=== PATIENT | female | born 1970 | race Caucasian/White ===

== ENCOUNTER 2021-01-15 13:26 | Inpatient (IN) | payer OTHER ==
[~2021-01-15] VITALS: Ht 177.8 cm; Wt 82.8 kg
[~2021-01-15 13:26] MED LIST: CLON2TAB PO; ESCITALOPRAM OX10 MG PO; FAMO-63 PO; HYDR-2761 PO; ZOLP5TAB PO
[2021-01-15] MEDS ORDERED: IV NORMAL SALINE 1000ML BAG 1,000 ML IV ONE ×2 (14:00→17:30)
[2021-01-15] MEDS ORDERED: ONDANSETRON PF 4 MG/2 ML VIAL. IVP ONE (14:00)
[2021-01-15] MEDS: MORPHINE SULFATE 4 MG/ML INJ. IV/SQ PRN ×3 (14:26→17:00)
[2021-01-15 14:28] LABS: BASO % 1 % (0-3); EOS # 0.1 x10^3/uL (0.0-0.7); EOS % 2 % (0-3); HEMATOCRIT 41.7 % (36.0-47.0); HEMOGLOBIN 13.9 g/dL (12.0-15.5); LYMPH # 1.6 x10^3/uL (1.0-4.8); LYMPH % 28 % (24-48); MEAN CORPUSCULAR HEMOGLOBIN 29 pg (25-35); MEAN CORPUSCULAR HGB CONC 33 g/dL (31-37); MEAN CORPUSCULAR VOLUME 86 fL (79-100); MONO # 0.4 x10^3/uL (0.0-1.1); MONO % 7 % (0-9); NEUT # 3.5 x10^3/uL (1.8-7.7); NEUT % 63 % (31-73); PLATELET COUNT 255 x10^3/uL (140-400); RED BLOOD COUNT 4.87 x10^6/uL (3.50-5.40); RED CELL DISTRIBUTION WIDTH 14.5 % (11.5-14.5); WHITE BLOOD COUNT 5.6 x10^3/uL (4.0-11.0)
[2021-01-15 14:29] LABS: BILIRUBIN,URINE NEGATIVE (NEG); CLARITY,URINE CLEAR; COLOR,URINE YELLOW; NITRITE,URINE NEGATIVE (NEG); PH,URINE 5.5 (<5.0-8.0); PROTEIN,URINE NEGATIVE (NEG-TRACE); UROBILINOGEN,URINE 0.2 mg/dL (0.2 mg/dL)
[2021-01-15 14:41] LABS: BARBITURATES NEG (NEG); BENZODIAZEPINES POS (NEG); CANNABINOIDS NEG (NEG); COCAINE NEG (NEG); METHADONE NEG (NEG); OPIATES NEG (NEG); PHENCYCLIDINE NEG (NEG)
[2021-01-15 14:42] LABS: CALCIUM 8.9 mg/dL (8.5-10.1); CREATININE 0.9 mg/dL (0.6-1.0); GFR 65.8; POTASSIUM 3.7 mmol/L (3.5-5.1)
[2021-01-15 14:46] LABS: AMPHETAMINE/METHAMPHETAMINE NEG (NEG)
[2021-01-15 14:47] LABS: ALBUMIN 3.8 g/dL (3.4-5.0); MAGNESIUM 2.1 mg/dL (1.8-2.4); TOTAL BILIRUBIN 0.5 mg/dL (0.2-1.0); TOTAL PROTEIN 7.5 g/dL (6.4-8.2)
[2021-01-15 14:49] LABS: BACTERIA,URINE 0 /HPF (0-FEW); RBC,URINE OCC /HPF (0-2); WBC,URINE OCC /HPF (0-4)
[2021-01-15] MEDS ORDERED: IOHEXOL 300 MG/ML 100ML VIAL. IV ONE (15:00)
[2021-01-15] MEDS ORDERED: CONTRAST GIVEN. MC PRN (15:00)
--- NOTE | 2021-01-15 15:34 | RAD ---
INDICATION: Reason: abd pain / Spl. Instructions: [id number] [phone] / History: COMPARISON: January 04, 2021 TECHNIQUE: Axial CT images were obtained through the abdomen and pelvis with intravenous contrast. One or more of the following individualized dose reduction techniques were utilized for this examinat ion: 1. Automated exposure control; 2. Adjustment of the mA and/or kV according to patient size; 3 . Use of iterative reconstruction technique. FINDINGS: Vascular: Scattered calcific atherosclerosis. Hepatobiliary: Postcholecystectomy with prominence of the intrahepatic bile ducts which is a common f inding postoperatively. Low-density lesion left lobe the liver again seen which is most likely cystic in nature. Pancreas: No peripancreatic edema. Spleen: Spleen unremarkable. Renal/Bladder: Prominence of the bilateral renal pelvis again seen. Urinary bladder has minimal urine within it at time of exam. Gastrointestinal: Postoperative changes to the colon with suture line seen in the sigmoid region as w ell as right side of the colon. Colonic diverticulosis. Colon is largely decompressed with some regio ns with prominence the wall. This includes at the right side of the colon with some subtle haziness t o the fat again seen. No dilated loops of bowel to suggest obstruction. Repeat demonstration of small anterior abdominal wall hernia which is similar to prior. Degenerative changes the spine with multilevel central canal and neural foraminal stenosis. IMPRESSION: * There is repeat demonstration of some prominence of the colon wall with small amount haziness the fat adjacent to a portion of the right side of the colon. A portion of the prominence the wall is li xavier secondary to lack of distention but given the mild haziness the fat this could be secondary to a small amount of residual inflammation from causes such as colitis if the patient has appropriate sym ptoms. The haziness the fat appears slightly decreased from prior. * Postcholecystectomy with prominence of bile ducts which is a common finding postoperatively. Electronically signed by: Matteo Fung MD (01/15/2021 3:31 PM) [id number]
--- NOTE | 2021-01-15 15:42 | PHYS DOC ---
Past Medical History Past Medical History: Depression Additional Past Medical Histor: HERNIA, LARS (LOW ANTERIOR RESECTION SYNDROME) Past Surgical History: Appendectomy, Cholecystectomy, Hysterectomy Additional Past Surgical Histo: MULTIPLE BOWEL RESECTION REPAIRS Smoking Status: Unknown if ever smoked Alcohol Use: None General Adult EDM: Chief Complaint: ABDOMINAL PAIN HPI: HPI: Patient is a 50 year old female with a history of depression, multiple abdominal surgeries including colon resection, abdominal hernia, colitis, cholecystectomy, appendectomy, who presents the ED today complaining of chronic abdominal pain but has gotten worse this morning. Patient describes the pain as sharp and constant, rates the pain at 7 out of 10, states the pain is on the right lower quadrant. Reports chronic diarrhea. Denies any nausea or vomiting. She states she ran out of her oxycodone a couple days ago. She states she is supposed to have ventral hernia repair surgery in [address] Lacey and can not wait until then. She states she was seen at [facility] on January 04, 2021 but they did not do anything for her though she reports they did lab work and CT as well as give her pain medicine. Review of Systems: Review of Systems: Constitutional: Denies fever or chills. [] Eyes: Denies change in visual acuity. [] HENT: Denies nasal congestion or sore throat. [] Respiratory: Denies cough or shortness of breath. [] Cardiovascular: Denies chest pain or edema. [] GI: Reports right lower quadrant abdominal pain, chronic diarrhea, denies nausea, vomiting, bloody stools : Denies dysuria. [] Musculoskeletal: Denies back pain or joint pain. [] Integument: Denies rash. [] Neurologic: Denies headache, focal weakness or sensory changes. [] Psychiatric: Denies depression or anxiety. [] Heart Score: C/O Chest Pain: N/A Risk Factors: Risk Factors: DM, Current or recent (<one month) smoker, HTN, HLP, family histo ry of CAD, obesity. Risk Scores: Score 0 - 3: 2.5% MACE over next 6 weeks - Discharge Home Score 4 - 6: 20.3% MACE over next 6 weeks - Admit for Clinical Observation Score 7 - 10: 72.7% MACE over next 6 weeks - Early Invasive Strategies Current Medications: Current Medications Medications (Trade) Dose Ordered Sig/Beny Start Time Stop Time Status Last Admin Dose Admin Info (CONTRAST GIVEN -- Rx MONITORING) 1 each PRN DAILY PRN 01/15/21 15:00 01/17/21 14:59 Iohexol (Omnipaque 300 Mg/ml) 75 ml 1X ONCE 01/15/21 15:00 01/15/21 15:01 DC 01/15/21 14:59 75 ML Morphine Sulfate (Morphine Sulfate) 4 mg PRN Q15MIN PRN 01/15/21 14:00 01/16/21 13:59 01/15/21 14:31 4 MG Ondansetron HCl (Zofran) 4 mg 1X ONCE 01/15/21 14:00 01/15/21 14:01 DC 01/15/21 14:31 4 MG Sodium Chloride 1,000 ml @ 1,000 mls/hr 1X ONCE 01/15/21 14:00 01/15/21 14:59 DC 01/15/21 14:25 1,000 MLS/HR Allergies: Allergies: Allergies Coded Allergies Type Severity Reaction Last Updated Verified cephalexin Allergy Intermediate 01/15/21 Yes Physical Exam: PE: Constitutional: Well developed, well nourished, no acute distress, non-toxic appearance. [] HENT: Normocephalic, atraumatic, bilateral external ears normal, oropharynx moist, no oral exudates, nose normal. [] Eyes: PERRLA, EOMI, conjunctiva normal, no discharge. [] Neck: Normal range of motion, no tenderness, supple, no stridor. [] Cardiovascular:Heart rate regular rhythm, no murmur [] Lungs & Thorax: Bilateral breath sounds clear to auscultation [] Abdomen: Bowel sounds normal, soft, mild tenderness on palpation of the right lower quadrant, no right upper quadrant tenderness, no left upper quadrant or left lower quadrant tenderness no masses, no pulsatile masses. [] Skin: Warm, dry, no erythema, no rash. [] Back: No tenderness, no CVA tenderness. [] Extremities: No tenderness, no cyanosis, no clubbing, ROM intact, no edema. [] Neurologic: Alert and oriented X 3, normal motor function, normal sensory function, no focal deficits noted. [] Psychologic: Flat affect. Current Patient Data: Labs: Laboratory Tests Test 01/15/21 13:58 01/15/21 14:04 01/15/21 14:07 White Blood Count 5.6 x10^3/uL (4.0-11.0) Red Blood Count 4.87 x10^6/uL (3.50-5.40) Hemoglobin 13.9 g/dL (12.0-15.5) Hematocrit 41.7 % (36.0-47.0) Mean Corpuscular Volume 86 fL (79-100) Mean Corpuscular Hemoglobin 29 pg (25-35) Mean Corpuscular Hemoglobin Concent 33 g/dL (31-37) Red Cell Distribution Width 14.5 % (11.5-14.5) Platelet Count 255 x10^3/uL (140-400) Neutrophils (%) (Auto) 63 % (31-73) Lymphocytes (%) (Auto) 28 % (24-48) Monocytes (%) (Auto) 7 % (0-9) Eosinophils (%) (Auto) 2 % (0-3) Basophils (%) (Auto) 1 % (0-3) Neutrophils # (Auto) 3.5 x10^3/uL (1.8-7.7) Lymphocytes # (Auto) 1.6 x10^3/uL (1.0-4.8) Monocytes # (Auto) 0.4 x10^3/uL (0.0-1.1) Eosinophils # (Auto) 0.1 x10^3/uL (0.0-0.7) Basophils # (Auto) 0.0 x10^3/uL (0.0-0.2) Sodium Level 139 mmol/L (136-145) Potassium Level 3.7 mmol/L (3.5-5.1) Chloride Level 102 mmol/L (98-107) Carbon Dioxide Level 29 mmol/L (21-32) Anion Gap 8 (6-14) Blood Urea Nitrogen 20 mg/dL (7-20) Creatinine 0.9 mg/dL (0.6-1.0) Estimated GFR (Cockcroft-Gault) 65.8 BUN/Creatinine Ratio 22 (6-20) H Glucose Level 94 mg/dL (70-99) Lactic Acid Level 1.4 mmol/L (0.4-2.0) Calcium Level 8.9 mg/dL (8.5-10.1) Magnesium Level 2.1 mg/dL (1.8-2.4) Total Bilirubin 0.5 mg/dL (0.2-1.0) Aspartate Amino Transferase (AST) 17 U/L (15-37) Alanine Aminotransferase (ALT) 23 U/L (14-59) Alkaline Phosphatase 94 U/L (46-116) Total Protein 7.5 g/dL (6.4-8.2) Albumin 3.8 g/dL (3.4-5.0) Albumin/Globulin Ratio 1.0 (1.0-1.7) Lipase 91 U/L (73-393) Urine Collection Type Unknown Urine Color Yellow Urine Clarity Clear Urine pH 5.5 (<5.0-8.0) Urine Specific Viola 1.025 (1.000-1.030) Urine Protein Negative mg/dL (NEG-TRACE) Urine Glucose (UA) Negative mg/dL (NEG) Urine Ketones (Stick) Trace mg/dL (NEG) Urine Blood Trace (NEG) Urine Nitrite Negative (NEG) Urine Bilirubin Negative (NEG) Urine Urobilinogen Dipstick 0.2 mg/dL (0.2 mg/dL) Urine Leukocyte Esterase Negative (NEG) Urine RBC Occ /HPF (0-2) Urine WBC Occ /HPF (0-4) Urine Squamous Epithelial Cells Few /LPF Urine Bacteria 0 /HPF (0-FEW) Urine Mucus Mod /LPF Urine Opiates Screen Neg (NEG) Urine Methadone Screen Neg (NEG) Urine Barbiturates Neg (NEG) Urine Phencyclidine Screen Neg (NEG) Urine Amphetamine/Methamphetamine Neg (NEG) Urine Benzodiazepines Screen Pos (NEG) Urine Cocaine Screen Neg (NEG) Urine Cannabinoids Screen Neg (NEG) Urine Ethyl Alcohol Neg (NEG) POC Urine HCG, Qualitative Hcg negative (Negative) Laboratory Tests 01/15/21 13:58 Laboratory Tests 01/15/21 13:58 Vital Signs: Vital Signs Date Time Temp Pulse Resp B/P (MAP) Pulse Ox O2 Delivery O2 Flow Rate FiO2 01/15/21 15:04 80 16 116/61 (79) 97 Room Air EKG: EKG: [] Radiology/Procedures: Radiology/Procedures: []PROCEDURE: CT ABD PELV W/ IV CONTRST ONLY INDICATION: Reason: abd pain / Spl. Instructions: [id number] [phone] / History: COMPARISON: January 04, 2021 TECHNIQUE: Axial CT images were obtained through the abdomen and pelvis with intravenous contrast. One or more of the following individualized dose reduction techniques were utilized for this examination: 1. Automated exposure control; 2. Adjustment of the mA and/or kV according to patient size; 3. Use of iterative reconstruction technique. FINDINGS: Vascular: Scattered calcific atherosclerosis. Hepatobiliary: Postcholecystectomy with prominence of the intrahepatic bile ducts which is a common finding postoperatively. Low-density lesion left lobe the liver again seen which is most likely cystic in nature. Pancreas: No peripancreatic edema. Spleen: Spleen unremarkable. Renal/Bladder: Prominence of the bilateral renal pelvis again seen. Urinary bladder has minimal urine within it at time of exam. Gastrointestinal: Postoperative changes to the colon with suture line seen in the sigmoid region as well as right side of the colon. Colonic diverticulosis. Colon is largely decompressed with some regions with prominence the wall. This includes at the right side of the colon with some subtle haziness to the fat again seen. No dilated loops of bowel to suggest obstruction. Repeat demonstration of small anterior abdominal wall hernia which is similar to prior. Degenerative changes the spine with multilevel central canal and neural foraminal stenosis. IMPRESSION: * There is repeat demonstration of some prominence of the colon wall with small amount haziness the fat adjacent to a portion of the right side of the colon. A portion of the prominence the wall is likely secondary to lack of distention but given the mild haziness the fat this could be secondary to a small amount of residual inflammation from causes such as colitis if the patient has appropriate symptoms. The haziness the fat appears slightly decreased from prior. * Postcholecystectomy with prominence of bile ducts which is a common finding postoperatively. Electronically signed by: Jose Antonio Lynch MD (01/15/2021 3:31 PM) [id number] DICTATED and SIGNED BY: JOSE ANTONIO LYNCH MD DATE: 01/15/21 [id number] 0 Course & Med Decision Making: Course & Med Decision Making Pertinent Labs and Imaging studies reviewed. (See chart for details) This is a 50-year-old female patient with history of chronic abdominal pain with multiple surgeries including appendectomy, cholecystectomy, colon resection presenting today complaining of right lower quadrant abdominal pain that is chronic but got worse this morning. Patient was seen at [facility] in November as well as December for similar complaints. CBC, CMP, lipase with no acute findings. UA is negative CT of the abdomen and pelvis* There is repeat demonstration of some prominence of the colon wall with small amount haziness the fat adjacent to a portion of the right side of the colon. A portion of the prominence the wall is likely secondary to lack of distention but given the mild haziness the fat this could be secondary to a small amount of residual inflammation from causes such as colitis if the patient has appropriate symptoms. The haziness the fat appears slightly decreased from prior. Postcholecystectomy with prominence of bile ducts which is a common finding postoperatively. Results were communicated to patient and , patient stated she has hernia surgery scheduled in [address] Lacey but cannot wait until then. She states she wants this done ETHAN. Informed that there is no indication for having hernia repair emergently. Informed her she can follow-up as an outpatient with Dr. Lacey and have this set up. She states Dr. Lacey is booked up and now wants Dr. Hardin to do the procedure. She states she needs to be admitted to have this done as an inpatient. Spoke with Dr. Ferrera who accepted patient for admission, routine consult placed for general surgery. Hector Disclaimer: Hector Disclaimer: This electronic medical record was generated, in whole or in part, using a voice recognition dictation system. Departure Departure Impression: Primary Impression: Intractable abdominal pain Disposition: ADMITTED INPATIENT Condition: STABLE Referrals: BEATRIZ FAJARDO (PCP) ALLAN SHIN SENIOR QA TESTER Jan 15, 2021 15:41
[2021-01-15] MEDS ORDERED: KETOROLAC 30 MG/ML VIAL. IVP ONE (17:00)
[2021-01-15] MEDS ORDERED: ACETAMINOPHEN 500 MG TABLET PO ONE (17:00)
[2021-01-15] MEDS ORDERED: METOCLOPRAMIDE HCL 10 MG/2 ML VIAL. IVP ONE (17:15)
[2021-01-15] MEDS ORDERED: ONDANSETRON PF 4 MG/2 ML VIAL. IVP PRN (17:30)
[2021-01-15 19:00] VITALS: BP 117/60
[2021-01-15] MEDS: fentaNYL PF VIAL 100 MCG/2 ML VIAL IVP PRN (21:03)
[2021-01-15] MEDS ORDERED: CHOL400C PO (21:31)
[2021-01-15] MEDS ORDERED: CITALOPRAM 20 MG TABLET. PO SCH (22:00)
[2021-01-15] MEDS: clonazePAM 0.5 MG TABLET PO PRN (22:05)
[2021-01-15] MEDS: ZOLPIDEM 5 MG TABLET. PO PRN (22:05)
[2021-01-15] MEDS ORDERED: LEXAPRO10 MG PO (22:11)
[2021-01-15] MEDS: KETOROLAC 30 MG/ML VIAL. IVP PRN (22:36)
[2021-01-15 23:00] VITALS: BP 119/70
[2021-01-16 03:00] VITALS: BP 87/60
[2021-01-16 06:32] LABS: BASO % 1 % (0-3); EOS # 0.2 x10^3/uL (0.0-0.7); EOS % 4 % (0-3); HEMATOCRIT 37.1 % (36.0-47.0); LYMPH # 2.2 x10^3/uL (1.0-4.8); LYMPH % 48 % (24-48); MEAN CORPUSCULAR HEMOGLOBIN 28 pg (25-35); MEAN CORPUSCULAR HGB CONC 32 g/dL (31-37); MEAN CORPUSCULAR VOLUME 87 fL (79-100); MONO # 0.4 x10^3/uL (0.0-1.1); MONO % 8 % (0-9); NEUT # 1.8 x10^3/uL (1.8-7.7); NEUT % 39 % (31-73); PLATELET COUNT 236 x10^3/uL (140-400); RED BLOOD COUNT 4.27 x10^6/uL (3.50-5.40); RED CELL DISTRIBUTION WIDTH 14.8 % (11.5-14.5); WHITE BLOOD COUNT 4.5 x10^3/uL (4.0-11.0)
[2021-01-16 06:41] LABS: ALBUMIN 3.1 g/dL (3.4-5.0); ALBUMIN/GLOBULIN RATIO 1.1 (1.0-1.7); CALCIUM 8.1 mg/dL (8.5-10.1); CREATININE 0.7 mg/dL (0.6-1.0); GFR 87.9; POTASSIUM 3.6 mmol/L (3.5-5.1); TOTAL BILIRUBIN 0.6 mg/dL (0.2-1.0)
[2021-01-16 07:00] VITALS: BP 87/46
[2021-01-16] MEDS: METOCLOPRAMIDE HCL 10 MG/2 ML VIAL. IVP PRN (08:37)
[2021-01-16] MEDS: KETOROLAC 30 MG/ML VIAL. IVP PRN (08:38)
[2021-01-16] MEDS: fentaNYL PF VIAL 100 MCG/2 ML VIAL IVP PRN (08:58)
[2021-01-16] MEDS: CHOLECALCIFEROL (VITAMIN D3) 1,000 UNIT TABLET PO SCH (09:00)
[2021-01-16 11:00] VITALS: BP 99/46
--- NOTE | 2021-01-16 11:39 | PDOC2 ---
SHANAE BYNUM BEVERAGE STEWARD 01/16/21 1139: CONSULT Date of Consult Date of Consult DATE: 01/16/21 TIME: 11:30 Reason for Consult Reason for Consult: abd pain Referring Physician Referring Physician: ER Identification/Chief Complaint Chief Complaint abdominal pain Source Source: Chart review, Patient History of Present Illness Reason for Visit: Ongoing issues with right sided abdominal and pelvis pain. It has gotten worse and become more unbearable. Seems worse with stools. She has been seen by Dr Eason, tentatively planning colonoscopy then elective hernia repair. She reports can not wait until Feb for surgery, she can not discharge without this being treated. Something is very wrong Past Medical History Heme/Onc: Cancer Past Surgical History Past Surgical History: Appendectomy, Cholecystectomy, Hernia Repair, Colon Resection, Other Family History Family History: Other Social History ALCOHOL: rare Drugs: None Lives: with Family Current Problem List Problem List Problems Medical Problems: (1) Intractable abdominal pain Status: Acute Current Medications Current Medications Current Medications Morphine Sulfate (Morphine Sulfate) 4 mg PRN Q15MIN PRN IV/SQ PAIN GREATER THAN 3/10 Last administered on 01/15/21at 17:00; Start 01/15/21 at 14:00; Stop 01/16/21 at 13:59 Sodium Chloride 1,000 ml @ 1,000 mls/hr 1X ONCE IV Last administered on 01/15at 14:25; Start 01/15/21 at 14:00; Stop 01/15/21 at 14:59; Status DC Ondansetron HCl (Zofran) 4 mg 1X ONCE IVP Last administered on 01/15/21at 14:31; Start 01/15/21 at 14:00; Stop 01/15/21 at 14:01; Status DC Iohexol (Omnipaque 300 Mg/ml) 75 ml 1X ONCE IV Last administered on 01/15/21at 14:59; Start 01/15/21 at 15:00; Stop 01/15/21 at 15:01; Status DC Info (CONTRAST GIVEN -- Rx MONITORING) 1 each PRN DAILY PRN MC SEE COMMENTS; Start 01/15/21 at 15:00; Stop 01/17/21 at 14:59 Ketorolac Tromethamine (Toradol 30mg Vial) 30 mg 1X ONCE IVP Last administered on 01/15/21at 17:00; Start 01/15/21 at 17:00; Stop 01/15/21 at 17:01; Status DC Acetaminophen (Tylenol) 1,000 mg 1X ONCE PO Last administered on 01/15/21at 17:01; Start 01/15/21 at 17:00; Stop 01/15/21 at 17:01; Status DC Metoclopramide HCl (Reglan Vial) 10 mg 1X ONCE IVP Last administered on 01/15/21at 17:13; Start 01/15/21 at 17:15; Stop 01/15/21 at 17:16; Status DC Ondansetron HCl (Zofran) 4 mg PRN Q8HRS PRN IVP NAUSEA/VOMITING; Start 01/15/21 at 17:30; Stop 01/16/21 at 17:29 Fentanyl Citrate (Fentanyl 2ml Vial) 50 mcg PRN Q1HR PRN IVP PAIN Last adm inistered on 01/16/21at 08:58; Start 01/15/21 at 17:30; Stop 01/16/21 at 17:29 Sodium Chloride 1,000 ml @ 75 mls/hr 1X ONCE IV Last administered on 01/15/21at 21:00; Start 01/15/21 at 17:30; Stop 01/16/21 at 06:49; Status DC Metoclopramide HCl (Reglan Vial) 10 mg TID PRN PRN IVP NAUSEA Last administered on 01/16/21at 08:37; Start 01/15/21 at 17:30 Ketorolac Tromethamine (Toradol 30mg Vial) 30 mg PRN Q6HRS PRN IVP INFLAMMATION Last administered on 01/16/21at 08:38; Start 01/15/21 at 21:45; Stop 01/20/21 at 21:44 Zolpidem Tartrate (Ambien) 5 mg PRN QHS PRN PO INSOMNIA Last administered on 01/15/21at 22:05; Start 01/15/21 at 21:45 Vitamin D (Vitamin D3) 1,000 unit DAILY PO ; Start 01/16/21 at 09:00 Clonazepam (KlonoPIN) 2 mg PRN QHS PRN PO ANXIETY / AGITATION Last administered on 01/15/21at 22:05; Start 01/15/21 at 21:45 Citalopram Hydrobromide (CeleXA) 20 mg HS PO ; Start 01/15/21 at 22:00; Status Cancel Active Scripts Active Hydrocodone-Apap 5-325 (Hydrocodone Bit/Acetaminophen) 1 Tab Tablet 1 Tab PO PRN Q6HRS PRN 10 Days Reported Lexapro (Escitalopram Oxalate) 10 Mg Tablet 1 Tab PO HS Vitamin D3 (Cholecalciferol (Vitamin D3)) 10 Mcg Capsule 10 Mcg PO DAILY08 Pepcid (Famotidine) 20 Mg Tablet 20 Mg PO HS Klonopin (Clonazepam) 2 Mg Tablet 1 Tab PO PRN QHS PRN Escitalopram Oxalate 10 Mg Tablet 10 Mg PO HS Ambien (Zolpidem Tartrate) 5 Mg Tablet 5 Mg PO PRN QHS PRN Allergies Allergies: Coded Allergies: cephalexin (Verified Allergy, Intermediate, 01/15/21) ROS General: No: Chills, Fatigue PSYCHOLOGICAL ROS: No: Anxiety, Depression Eyes: No Blurry vision, No Double vision HEENT: No: Heacaches, Sore Throat Hematological and Lymphatic: No: Bleeding Problems, Blood Clots Respiratory: No: Cough Cardiovascular: No Chest Pain, No Palpitations Gastrointestinal: Yes Other (see hpi) Genitourinary: No Dysuria, No Hematuria Musculoskeletal: No Joint Pain, No Muscle Pain Neurological: No Impaired Coord/balance, No Numbness/Tingling Skin: No Pruritus, No Rash Physical Exam General: Alert, Oriented X3, Cooperative HEENT: Atraumatic, PERRLA Lungs: Clear to auscultation, Normal air movement Heart: Regular rate, Normal S1, Normal S2 Abdomen: Soft, Other (ND, ttp lower right abdomen ) Extremities: No clubbing, No cyanosis Skin: No rashes, No breakdown Neuro: Normal gait Psych/Mental Status: Mental status NL, Mood NL Vitals VITALS Vital Signs Date Time Temp Pulse Resp B/P (MAP) Pulse Ox O2 Delivery O2 Flow Rate FiO2 01/16/21 07:00 97.8 54 18 87/46 (60) 97.8 01/16/21 03:00 97 Room Air Labs Labs Laboratory Tests Test 01/15/21 13:58 01/15/21 14:04 01/15/21 14:07 01/15/21 18:10 White Blood Count 5.6 x10^3/uL (4.0-11.0) Red Blood Count 4.87 x10^6/uL (3.50-5.40) Hemoglobin 13.9 g/dL (12.0-15.5) Hematocrit 41.7 % (36.0-47.0) Mean Corpuscular Volume 86 fL (79-100) Mean Corpuscular Hemoglobin 29 pg (25-35) Mean Corpuscular Hemoglobin Concent 33 g/dL (31-37) Red Cell Distribution Width 14.5 % (11.5-14.5) Platelet Count 255 x10^3/uL (140-400) Neutrophils (%) (Auto) 63 % (31-73) Lymphocytes (%) (Auto) 28 % (24-48) Monocytes (%) (Auto) 7 % (0-9) Eosinophils (%) (Auto) 2 % (0-3) Basophils (%) (Auto) 1 % (0-3) Neutrophils # (Auto) 3.5 x10^3/uL (1.8-7.7) Lymphocytes # (Auto) 1.6 x10^3/uL (1.0-4.8) Monocytes # (Auto) 0.4 x10^3/uL (0.0-1.1) Eosinophils # (Auto) 0.1 x10^3/uL (0.0-0.7) Basophils # (Auto) 0.0 x10^3/uL (0.0-0.2) Sodium Level 139 mmol/L (136-145) Potassium Level 3.7 mmol/L (3.5-5.1) Chloride Level 102 mmol/L (98-107) Carbon Dioxide Level 29 mmol/L (21-32) Anion Gap 8 (6-14) Blood Urea Nitrogen 20 mg/dL (7-20) Creatinine 0.9 mg/dL (0.6-1.0) Estimated GFR (Cockcroft-Gault) 65.8 BUN/Creatinine Ratio 22 (6-20) Glucose Level 94 mg/dL (70-99) Lactic Acid Level 1.4 mmol/L (0.4-2.0) Calcium Level 8.9 mg/dL (8.5-10.1) Magnesium Level 2.1 mg/dL (1.8-2.4) Total Bilirubin 0.5 mg/dL (0.2-1.0) Aspartate Amino Transf (AST/SGOT) 17 U/L (15-37) Alanine Aminotransferase (ALT/SGPT) 23 U/L (14-59) Alkaline Phosphatase 94 U/L (46-116) Total Protein 7.5 g/dL (6.4-8.2) Albumin 3.8 g/dL (3.4-5.0) Albumin/Globulin Ratio 1.0 (1.0-1.7) Lipase 91 U/L (73-393) Procalcitonin < 0.10 ng/mL (0.00-0.10) Urine Collection Type Unknown Urine Color Yellow Urine Clarity Clear Urine pH 5.5 (<5.0-8.0) Urine Specific [place] 1.025 (1.000-1.030) Urine Protein Negative mg/dL (NEG-TRACE) Urine Glucose (UA) Negative mg/dL (NEG) Urine Ketones (Stick) Trace mg/dL (NEG) Urine Blood Trace (NEG) Urine Nitrite Negative (NEG) Urine Bilirubin Negative (NEG) Urine Urobilinogen Dipstick 0.2 mg/dL (0.2 mg/dL) Urine Leukocyte Esterase Negative (NEG) Urine RBC Occ /HPF (0-2) Urine WBC Occ /HPF (0-4) Urine Squamous Epithelial Cells Few /LPF Urine Bacteria 0 /HPF (0-FEW) Urine Mucus Mod /LPF Urine Opiates Screen Neg (NEG) Urine Methadone Screen Neg (NEG) Urine Barbiturates Neg (NEG) Urine Phencyclidine Screen Neg (NEG) Urine Amphetamine/Methamphetamine Neg (NEG) Urine Benzodiazepines Screen Pos (NEG) Urine Cocaine Screen Neg (NEG) Urine Cannabinoids Screen Neg (NEG) Urine Ethyl Alcohol Neg (NEG) Bedside Urine HCG, Qualitative Hcg negative (Negative) SARS-CoV-2 RNA (NEIDA) Negative (Negative) SARS-CoV-2 Antigen (Rapid) Negative (NEGATIVE) Test 01/16/21 04:25 White Blood Count 4.5 x10^3/uL (4.0-11.0) Red Blood Count 4.27 x10^6/uL (3.50-5.40) Hemoglobin 12.0 g/dL (12.0-15.5) Hematocrit 37.1 % (36.0-47.0) Mean Corpuscular Volume 87 fL (79-100) Mean Corpuscular Hemoglobin 28 pg (25-35) Mean Corpuscular Hemoglobin Concent 32 g/dL (31-37) Red Cell Distribution Width 14.8 % (11.5-14.5) Platelet Count 236 x10^3/uL (140-400) Neutrophils (%) (Auto) 39 % (31-73) Lymphocytes (%) (Auto) 48 % (24-48) Monocytes (%) (Auto) 8 % (0-9) Eosinophils (%) (Auto) 4 % (0-3) Basophils (%) (Auto) 1 % (0-3) Neutrophils # (Auto) 1.8 x10^3/uL (1.8-7.7) Lymphocytes # (Auto) 2.2 x10^3/uL (1.0-4.8) Monocytes # (Auto) 0.4 x10^3/uL (0.0-1.1) Eosinophils # (Auto) 0.2 x10^3/uL (0.0-0.7) Basophils # (Auto) 0.0 x10^3/uL (0.0-0.2) Sodium Level 140 mmol/L (136-145) Potassium Level 3.6 mmol/L (3.5-5.1) Chloride Level 106 mmol/L (98-107) Carbon Dioxide Level 25 mmol/L (21-32) Anion Gap 9 (6-14) Blood Urea Nitrogen 19 mg/dL (7-20) Creatinine 0.7 mg/dL (0.6-1.0) Estimated GFR (Cockcroft-Gault) 87.9 BUN/Creatinine Ratio 27 (6-20) Glucose Level 77 mg/dL (70-99) Calcium Level 8.1 mg/dL (8.5-10.1) Total Bilirubin 0.6 mg/dL (0.2-1.0) Aspartate Amino Transf (AST/SGOT) 21 U/L (15-37) Alanine Aminotransferase (ALT/SGPT) 19 U/L (14-59) Alkaline Phosphatase 79 U/L (46-116) Total Protein 6.0 g/dL (6.4-8.2) Albumin 3.1 g/dL (3.4-5.0) Albumin/Globulin Ratio 1.1 (1.0-1.7) Laboratory Tests Test 01/15/21 13:58 01/15/21 14:04 01/15/21 14:07 01/15/21 18:10 White Blood Count 5.6 x10^3/uL (4.0-11.0) Red Blood Count 4.87 x10^6/uL (3.50-5.40) Hemoglobin 13.9 g/dL (12.0-15.5) Hematocrit 41.7 % (36.0-47.0) Mean Corpuscular Volume 86 fL (79-100) Mean Corpuscular Hemoglobin 29 pg (25-35) Mean Corpuscular Hemoglobin Concent 33 g/dL (31-37) Red Cell Distribution Width 14.5 % (11.5-14.5) Platelet Count 255 x10^3/uL (140-400) Neutrophils (%) (Auto) 63 % (31-73) Lymphocytes (%) (Auto) 28 % (24-48) Monocytes (%) (Auto) 7 % (0-9) Eosinophils (%) (Auto) 2 % (0-3) Basophils (%) (Auto) 1 % (0-3) Neutrophils # (Auto) 3.5 x10^3/uL (1.8-7.7) Lymphocytes # (Auto) 1.6 x10^3/uL (1.0-4.8) Monocytes # (Auto) 0.4 x10^3/uL (0.0-1.1) Eosinophils # (Auto) 0.1 x10^3/uL (0.0-0.7) Basophils # (Auto) 0.0 x10^3/uL (0.0-0.2) Sodium Level 139 mmol/L (136-145) Potassium Level 3.7 mmol/L (3.5-5.1) Chloride Level 102 mmol/L (98-107) Carbon Dioxide Level 29 mmol/L (21-32) Anion Gap 8 (6-14) Blood Urea Nitrogen 20 mg/dL (7-20) Creatinine 0.9 mg/dL (0.6-1.0) Estimated GFR (Cockcroft-Gault) 65.8 BUN/Creatinine Ratio 22 (6-20) Glucose Level 94 mg/dL (70-99) Lactic Acid Level 1.4 mmol/L (0.4-2.0) Calcium Level 8.9 mg/dL (8.5-10.1) Magnesium Level 2.1 mg/dL (1.8-2.4) Total Bilirubin 0.5 mg/dL (0.2-1.0) Aspartate Amino Transf (AST/SGOT) 17 U/L (15-37) Alanine Aminotransferase (ALT/SGPT) 23 U/L (14-59) Alkaline Phosphatase 94 U/L (46-116) Total Protein 7.5 g/dL (6.4-8.2) Albumin 3.8 g/dL (3.4-5.0) Albumin/Globulin Ratio 1.0 (1.0-1.7) Lipase 91 U/L (73-393) Procalcitonin < 0.10 ng/mL (0.00-0.10) Urine Collection Type Unknown Urine Color Yellow Urine Clarity Clear Urine pH 5.5 (<5.0-8.0) Urine Specific [place] 1.025 (1.000-1.030) Urine Protein Negative mg/dL (NEG-TRACE) Urine Glucose (UA) Negative mg/dL (NEG) Urine Ketones (Stick) Trace mg/dL (NEG) Urine Blood Trace (NEG) Urine Nitrite Negative (NEG) Urine Bilirubin Negative (NEG) Urine Urobilinogen Dipstick 0.2 mg/dL (0.2 mg/dL) Urine Leukocyte Esterase Negative (NEG) Urine RBC Occ /HPF (0-2) Urine WBC Occ /HPF (0-4) Urine Squamous Epithelial Cells Few /LPF Urine Bacteria 0 /HPF (0-FEW) Urine Mucus Mod /LPF Urine Opiates Screen Neg (NEG) Urine Methadone Screen Neg (NEG) Urine Barbiturates Neg (NEG) Urine Phencyclidine Screen Neg (NEG) Urine Amphetamine/Methamphetamine Neg (NEG) Urine Benzodiazepines Screen Pos (NEG) Urine Cocaine Screen Neg (NEG) Urine Cannabinoids Screen Neg (NEG) Urine Ethyl Alcohol Neg (NEG) Bedside Urine HCG, Qualitative Hcg negative (Negative) SARS-CoV-2 RNA (NEIDA) Negative (Negative) SARS-CoV-2 Antigen (Rapid) Negative (NEGATIVE) Test 01/16/21 04:25 White Blood Count 4.5 x10^3/uL (4.0-11.0) Red Blood Count 4.27 x10^6/uL (3.50-5.40) Hemoglobin 12.0 g/dL (12.0-15.5) Hematocrit 37.1 % (36.0-47.0) Mean Corpuscular Volume 87 fL (79-100) Mean Corpuscular Hemoglobin 28 pg (25-35) Mean Corpuscular Hemoglobin Concent 32 g/dL (31-37) Red Cell Distribution Width 14.8 % (11.5-14.5) Platelet Count 236 x10^3/uL (140-400) Neutrophils (%) (Auto) 39 % (31-73) Lymphocytes (%) (Auto) 48 % (24-48) Monocytes (%) (Auto) 8 % (0-9) Eosinophils (%) (Auto) 4 % (0-3) Basophils (%) (Auto) 1 % (0-3) Neutrophils # (Auto) 1.8 x10^3/uL (1.8-7.7) Lymphocytes # (Auto) 2.2 x10^3/uL (1.0-4.8) Monocytes # (Auto) 0.4 x10^3/uL (0.0-1.1) Eosinophils # (Auto) 0.2 x10^3/uL (0.0-0.7) Basophils # (Auto) 0.0 x10^3/uL (0.0-0.2) Sodium Level 140 mmol/L (136-145) Potassium Level 3.6 mmol/L (3.5-5.1) Chloride Level 106 mmol/L (98-107) Carbon Dioxide Level 25 mmol/L (21-32) Anion Gap 9 (6-14) Blood Urea Nitrogen 19 mg/dL (7-20) Creatinine 0.7 mg/dL (0.6-1.0) Estimated GFR (Cockcroft-Gault) 87.9 BUN/Creatinine Ratio 27 (6-20) Glucose Level 77 mg/dL (70-99) Calcium Level 8.1 mg/dL (8.5-10.1) Total Bilirubin 0.6 mg/dL (0.2-1.0) Aspartate Amino Transf (AST/SGOT) 21 U/L (15-37) Alanine Aminotransferase (ALT/SGPT) 19 U/L (14-59) Alkaline Phosphatase 79 U/L (46-116) Total Protein 6.0 g/dL (6.4-8.2) Albumin 3.1 g/dL (3.4-5.0) Albumin/Globulin Ratio 1.1 (1.0-1.7) Assessment/Plan Assessment/Plan abd pain no acute findings, however pt states can not discharge until has surgery--will have Dr Eason review with pt KARAN EASON MD 01/16/21 1307: CONSULT Assessment/Plan Assessment/Plan Patient seen and examined by me she is resting comfortably in bed does describe abdominal pain mostly low in the pelvic area and to the right lower abdomen she does not really point to where her hernia is abdomen is soft nondistended. CT scan reviewed shows hernia as previously viewed without obstructive symptoms or signs. Does comment on the ascending colon as being thickened possible colitis. Agree with Deondre assessment plan will have GI see for their opinion on her potential colitis. Hernia has not changed and is not urgent SHANAE BYNUM APRN Jan 16, 2021 11:39 KARAN EASON MD Jan 16, 2021 13:07
--- NOTE | 2021-01-16 11:47 | PN ---
DATE: 01/16/2021 SUBJECTIVE: The patient is resting slightly propped up in bed, in no apparent distress, awake, alert. On questioning her, she continued to complain of pain in her right lower quadrant; however, she did have a bowel movement this morning. She has some nausea, but no vomiting. Her clinical exam is stable, has not really changed. Her vital signs are stable. OBJECTIVE: VITAL SIGNS: Her heart rate was 54, blood pressure was 87/46, temperature 97.8, respiratory rate was 18 and oxygen saturation was 97%. LABORATORY WORK: This morning again showed that her white cell count was only 4500 with normal hemoglobin, hematocrit and platelets. Her chemistry is essentially unremarkable. ASSESSMENT AND PLAN: Acute on chronic abdominal pain. She has small anterior abdominal wall hernia, which is similar to prior. She has also some prominence of the colon wall with small amount of haziness of the fat adjacent to the portion of the right side of the colon. The patient is afebrile, hemodynamically stable. White cell count was normal. Again, we are waiting for the evaluation by the surgical team regarding either colonoscopy or surgical treatment, although I doubt very much that either of these tests can be done today. EVELYN DR: Sin TID: [id number]
--- NOTE | 2021-01-16 12:05 | HP ---
DATE OF SERVICE: 01/16/2021 ADMIT DATE: 01/15/2021 HISTORY OF PRESENT ILLNESS: The patient is a 50-year-old female patient with multiple abdominal surgeries including colon resection, abdominal hernia repair, diverticulitis, who presented to the Emergency Room of [facility] with chronic abdominal pain that has gotten worse yesterday morning. She describes the pain as sharp and constant, rates the pain as 7/10, the pain is on the right lower quadrant. Reports chronic diarrhea. She denied any nausea or vomiting. She states she ran out of her oxycodone a couple of days ago. She states that she is supposed to have ventral hernia repair surgery in [address] Lacey and cannot wait until then. She was seen at [facility] on 01/04/2021. At the time, she had had a CT scan done and was seen by Dr. Lacey next day at his clinic, who apparently recommended doing a colonoscopy before proceeding with ventral hernia repair. She was extensively investigated in the Emergency Room and has had lab work as well as imaging studies. Her lab work were unremarkable, in fact, her white cell count was only 5600. Her procalcitonin was 0.1, lactic acid is 1.4 and her chemistry was also unrevealing. Urinalysis essentially unremarkable and her toxic screen was positive for benzodiazepine. Has had a CT scan of the abdomen and pelvis with intravenous contrast, which basically showed that she has a post-cholecystectomy with prominence of the intrahepatic bile ducts, which is a common finding postoperatively. She has low density lesion in the left lobe of the liver, again seen, which is almost likely a cystic in nature. There is no peripancreatic edema. The spleen is unremarkable. There is prominence of the bilateral renal pelvis again seen and the urinary bladder has minimal urine within it at time of exam, she has postoperative changes of the colon with suture lines seen in the sigmoid region as well as right side of the colon. She has chronic diverticulosis. The colon is largely decompressed with some regions with prominence wall. This includes the right side of the colon with some subtle haziness of the fat again seen. No dilated loops of bowel to suggest obstruction. Repeat demonstration with small anterior abdominal wall hernia, which is similar to prior. 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 The patient was admitted, was kept n.p.o., started on IV fluid, IV pain medication and antiemetic. PAST MEDICAL HISTORY: Significant for diverticulitis as well as hyperlipidemia. PAST SURGICAL HISTORY: Significant for appendectomy, partial colectomy, gastric sleeve and partial thyroidectomy. She also had developed periumbilical incisional hernia for which she was scheduled to repair with Dr. Lacey on 08/02. Her other past medical history significant for ovarian cancer. FAMILY HISTORY: Positive for colon cancer for which she has multiple colonoscopies. SOCIAL HISTORY: She is and lives with her family. She does not smoke. She quit smoking. She drinks alcohol occasionally. Does not use any drugs. MEDICATIONS: She is currently on following medications: She is on hydrocodone/APAP 5/325 one tablet every 6 hours, clonazepam 2 mg at bedtime, escitalopram oxalate 10 mg daily, Ambien 5 mg at bedtime, famotidine 20 mg at bedtime, cholecalciferol vitamin D3 10 mcg once a day. REVIEW OF SYSTEMS: As per history of present illness. PHYSICAL EXAMINATION: GENERAL: On examining her, the patient looked well and was clearly in no apparent respiratory distress. No pallor, jaundice, cyanosis, or thyromegaly. No jugular venous distention. No lower limb edema. VITAL SIGNS: Her heart rate was 54, blood pressure was 87/45, temperature was 97.8, respiratory rate was 18 and oxygen saturation was 97% on room air. HEAD, EYES, EARS, NOSE, AND THROAT: Normocephalic, atraumatic. NECK: Supple. HEART: Showed normal first and second heart sounds. No gallop or murmur. CHEST: Shows central trachea, equal bilateral expansion, air entry, vesicular breath sounds. No crepitation or rhonchi. ABDOMEN: Scaphoid, mostly soft except in the right lower quadrant and suprapubic catheter area and around the umbilical area and there is no guarding or rigidity. No organomegaly. Bowel sounds are normal. LABORATORY DATA: On arrival to the Emergency Room showed her white cell count to be 5600, hemoglobin 14, hematocrit 42, MCV 86 and platelet count 255,000 with normal manual differential. Her serum sodium was 139, potassium 3.7, chloride 102, bicarbonate 29, anion gap of 8, BUN 20, creatinine 0.9. Estimated GFR was 65 mL per minute. Her glucose was 94. Lactic acid was 1.4, calcium was 8.9, magnesium 2.1. Total bilirubin, AST, ALT, alkaline phosphatase were normal. Total protein 7.5, albumin 3.8 and lipase was 91. Urinalysis essentially unremarkable and tox screen was positive for benzodiazepines. Her coronavirus by PCR was negative. ASSESSMENT: So, in summary, this is a 50-year-old female patient who came with a complaint of chronic abdominal pain that has worsened yesterday. Her CT scan of the abdomen and pelvis with IV contrast showed repeat demonstration of some prominence of the colon wall with small amount of haziness of the fat adjacent to a portion of the right side of the colon, a portion of the prominence, the wall is likely secondary to lack of distention, but given the mild haziness of the fat. This could be secondary to a small amount of residual inflammation from cause such as colitis. The haziness of the fat appears slightly decreased from prior. There is a possible cystectomy with prominence of the bile duct, which is a common finding postoperatively. She also had repeat demonstration of small anterior abdominal wall hernia, which is similar to prior. PLAN: To keep her n.p.o. Continue with IV fluid, IV pain medication and antiemetics. I resumed all her other medications. I have consulted the Dr. Lacey. SANJEEV/MELISSA LORENZO: SANJEEV/destinee TID: [id number]
[2021-01-16] MEDS: HYDROmorphone 2 MG/ML VIAL IVP PRN ×3 (14:12→23:23)
--- NOTE | 2021-01-16 14:54 | NUR ---
SW following. Discussed with RN, pt from home with , room air, NPO. COVID-19 negative. GI and Surgery following. RN advised no SW needs at this time. SW will continue to follow.
[2021-01-16 15:00] VITALS: BP 116/76
--- NOTE | 2021-01-16 15:16 | PDOC2 ---
GI CONSULT Date of Service: DATE: 01/16/21 TIME: 14:44 Reason For Consult: abd pain with questionable right colon colitis HPI: HPI: 50 y/o female who has seen Dr. Mcfadden in the past. Chronic GI issues w/ complicated GI/surgical history (below). Symptoms including chronic right mid/lower abdominal/pelvic pain ("like a bowling ball" and severe cramping), diarrhea, nausea, and lethargy have been worse since a couple weeks after her last surgery in 07/2020. Diarrhea is orange-yellow and watery, says was normal-colored before. Healthy foods like vegetable (even cooked) pass through very quickly - will eat lettuce and 15 min later it will be in the toilet, and she stopped taking multivitamin because she was pooping them out whole. Has less diarrhea if she eats bread. She doesn't eat much to avoid diarrhea but has gained ~25 pounds since 09/2018. Says she can't exercise because she is so fatigued. Saw Dr. Lacey as outpt; colonoscopy and elective hernia repair was planned. This admission: Labs unremarkable. Question of lack of distention vs right-sided colitis on CT which is why we are asked to see. H/o large cecal polyp on colonoscopy at age 38 - resection suggested then but not pursued. Says for this (?) and diverticulitis had LAR w/ ileostomy placement in 09/2018 @ , then reversal in 01/2019. Then transferred from [facility] to [facility] in 02/2019 w/ concern for bowel ischemia - treated w/ atbx at [facility]. Then followed-up at and had appendectomy and SBR in 06/2019 for ischemia and perforations - apparently some complications w/ this ("infected stitches") requiring another procedure in 08/2019 and wound vac. Last colonoscopy @ in 12/2019 (says note 08/2019 as in last GI consult note) reportedly normal except diverticulosis. No polyps then - apparently at one point int he past had >25 polyps on colonoscopy. No IBD history. H/o gurgling in esophagus after drinking diet Mt. Dew - improved w/ avoidance of Mt. Dew and Pepcid (which she's not currently taking due to lack of gurgling). H/o chronic diarrhea/loose stools since surgeries in 2018. When we saw in 07/2020, she reported urgent yellow-orange stools worse after eating vegetables and better after eating carbs. At that time described eating salad and 15 minutes later seeing lettuce in the toilet. H/o LARS (lower anterior resection syndrome) - diagnosed @ . Previous trials of fiber and Creon made her more sick. Trial of Pentasa x 2 weeks was ineffective. Imodium helps - takes if she has to leave the house or if she's going to try eating more than just a little bit. Usually takes Bentyl for cramping - has been out. S/p cholecystectomy (GB EF 5%, normal IOC, no cholelithiasis) and incisional hernia repair w/ Dr. Hardin in 07/2020. Probable hepatic cyst on past US and CT. H/o ovarian/cervical/uterine cancer s/p hysterectomy in 1998, opted for no chemo/rad. 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 S/p gastric sleeve @ [facility] in 2008. She reports rapid emptying on recent GES and recalls past SBS @ before one of her surgeries. No dysphagia, vomiting, constipation/hard stools, or hematochezia. Passed something that looked like a white jellyfish (maybe mucous) recently and within the past month had some stool that looked like coffee-grounds. No pancreas or PUD history. Has been taking Tylenol, Excedrin, and Zofran at home. Feels like something is really wrong - she knows her body - doesn't think she needs a colonoscopy but really would like surgery. Chriss present. PMH: PMH: see HPI and additionally: anxiety/depression, allergic rhinitis hysterectomy FH: Family History: Cancer (MGM - colon, throat; mother - colon) Social History: ALCOHOL: rare Drugs: None ROS: GEN: Denies fevers, chills, sweats HEENT: Denies blurred vision, sore throat CV: Denies chest pain RESP: Denies shortness of air, cough GI: Per HPI : Denies hematuria, dysuria ENDO: Denies weight changes NEURO: Denies confusion, dizziness MSK: Denies weakness, joint pain/swelling SKIN: Denies jaundice, pruritus Vitals: Vitals: Vital Signs Date Time Temp Pulse Resp B/P (MAP) Pulse Ox O2 Delivery O2 Flow Rate FiO2 01/16/21 11:00 98.9 63 18 99/46 (63) 98.9 01/16/21 03:00 97 Room Air Labs: Labs: Laboratory Tests Test 01/15/21 18:10 01/16/21 04:25 SARS-CoV-2 RNA (NEIDA) Negative (Negative) SARS-CoV-2 Antigen (Rapid) Negative (NEGATIVE) White Blood Count 4.5 x10^3/uL (4.0-11.0) Red Blood Count 4.27 x10^6/uL (3.50-5.40) Hemoglobin 12.0 g/dL (12.0-15.5) Hematocrit 37.1 % (36.0-47.0) Mean Corpuscular Volume 87 fL (79-100) Mean Corpuscular Hemoglobin 28 pg (25-35) Mean Corpuscular Hemoglobin Concent 32 g/dL (31-37) Red Cell Distribution Width 14.8 % (11.5-14.5) Platelet Count 236 x10^3/uL (140-400) Neutrophils (%) (Auto) 39 % (31-73) Lymphocytes (%) (Auto) 48 % (24-48) Monocytes (%) (Auto) 8 % (0-9) Eosinophils (%) (Auto) 4 % (0-3) Basophils (%) (Auto) 1 % (0-3) Neutrophils # (Auto) 1.8 x10^3/uL (1.8-7.7) Lymphocytes # (Auto) 2.2 x10^3/uL (1.0-4.8) Monocytes # (Auto) 0.4 x10^3/uL (0.0-1.1) Eosinophils # (Auto) 0.2 x10^3/uL (0.0-0.7) Basophils # (Auto) 0.0 x10^3/uL (0.0-0.2) Sodium Level 140 mmol/L (136-145) Potassium Level 3.6 mmol/L (3.5-5.1) Chloride Level 106 mmol/L (98-107) Carbon Dioxide Level 25 mmol/L (21-32) Anion Gap 9 (6-14) Blood Urea Nitrogen 19 mg/dL (7-20) Creatinine 0.7 mg/dL (0.6-1.0) Estimated GFR (Cockcroft-Gault) 87.9 BUN/Creatinine Ratio 27 (6-20) Glucose Level 77 mg/dL (70-99) Calcium Level 8.1 mg/dL (8.5-10.1) Total Bilirubin 0.6 mg/dL (0.2-1.0) Aspartate Amino Transf (AST/SGOT) 21 U/L (15-37) Alanine Aminotransferase (ALT/SGPT) 19 U/L (14-59) Alkaline Phosphatase 79 U/L (46-116) Total Protein 6.0 g/dL (6.4-8.2) Albumin 3.1 g/dL (3.4-5.0) Albumin/Globulin Ratio 1.1 (1.0-1.7) BLOOD CULTURE Preliminary NO GROWTH AFTER 1 DAY Allergies: Coded Allergies: cephalexin (Verified Allergy, Intermediate, 01/15/21) Medications: Current Medications Medications (Trade) Dose Ordered Sig/Beny Route PRN Reason Start Time Stop Time Status Last Admin Dose Admin Iohexol (Omnipaque 300 Mg/ml) 75 ml 1X ONCE IV 01/15/21 15:00 01/15/21 15:01 DC 01/15/21 14:59 Ketorolac Tromethamine (Toradol 30mg Vial) 30 mg 1X ONCE IVP 01/15/21 17:00 01/15/21 17:01 DC 01/15/21 17:00 Acetaminophen (Tylenol) 1,000 mg 1X ONCE PO 01/15/21 17:00 01/15/21 17:01 DC 01/15/21 17:01 Metoclopramide HCl (Reglan Vial) 10 mg 1X ONCE IVP 01/15/21 17:15 01/15/21 17:16 DC 01/15/21 17:13 Fentanyl Citrate (Fentanyl 2ml Vial) 50 mcg PRN Q1HR PRN IVP PAIN 01/15/21 17:30 01/16/21 17:29 01/16/21 08:58 Sodium Chloride 1,000 ml @ 75 mls/hr 1X ONCE IV 01/15/21 17:30 01/16/21 06:49 DC 01/15/21 21:00 Metoclopramide HCl (Reglan Vial) 10 mg TID PRN PRN IVP NAUSEA 01/15/21 17:30 01/16/21 08:37 Ketorolac Tromethamine (Toradol 30mg Vial) 30 mg PRN Q6HRS PRN IVP INFLAMMATION 01/15/21 21:45 01/20/21 21:44 01/16/21 08:38 Zolpidem Tartrate (Ambien) 5 mg PRN QHS PRN PO INSOMNIA 01/15/21 21:45 01/15/21 22:05 Clonazepam (KlonoPIN) 2 mg PRN QHS PRN PO ANXIETY / AGITATION 01/15/21 21:45 01/15/21 22:05 Hydromorphone HCl (Dilaudid) 0.4 mg PRN Q4HRS PRN IVP PAIN 01/16/21 13:15 01/16/21 14:12 Imaging: Imaging: CT A/P 01/15 FINDINGS: Vascular: Scattered calcific atherosclerosis. Hepatobiliary: Postcholecystectomy with prominence of the intrahepatic bile ducts which is a common finding postoperatively. Low-density lesion left lobe the liver again seen which is most likely cystic in nature. Pancreas: No peripancreatic edema. Spleen: Spleen unremarkable. Renal/Bladder: Prominence of the bilateral renal pelvis again seen. Urinary bladder has minimal urine within it at time of exam. Gastrointestinal: Postoperative changes to the colon with suture line seen in the sigmoid region as well as right side of the colon. Colonic diverticulosis. Colon is largely decompressed with some regions with prominence the wall. This includes at the right side of the colon with some subtle haziness to the fat again seen. No dilated loops of bowel to suggest obstruction. Repeat demonstration of small anterior abdominal wall hernia which is similar to prior. Degenerative changes the spine with multilevel central canal and neural foraminal stenosis. IMPRESSION: * There is repeat demonstration of some prominence of the colon wall with small amount haziness the fat adjacent to a portion of the right side of the colon. A portion of the prominence the wall is likely secondary to lack of distention but given the mild haziness the fat this could be secondary to a small amount of residual inflammation from causes such as colitis if the patient has appropriate symptoms. The haziness the fat appears slightly decreased from prior. * Postcholecystectomy with prominence of bile ducts which is a common finding postoperatively. PE: GEN: NAD - briefly tearful HEENT: Atraumatic, PERRL LUNGS: CTAB HEART: RRR ABD: NABS, S/ND, lower right periumbilical region is most tender EXTREMITY: No edema SKIN: No rashes, no jaundice, previous abd surg scars NEURO/PSYCH: A & O 3 A/P: A/P: Chronic abd pain and diarrhea, fatigue, nausea Question of colitis on CT ?GERD CRC screen, h/o colon polyps (UTD - 12/2019 @ [facility]) Diverticular disease S/p cholecystectomy, gastric sleeve, LAR w/ ileostomy/reversal, SBR, hernia repair Suspected hepatic cysts H/o ovarian cancer Headache - new FH colon cancer -- Chronic/worsening symptoms. Reviewed w/ Dr. Mcfadden - recommends trial of Colestid. We'll also check stool studies and TSH. No plans for inpatient colonoscopy at this time. Okay to try eating per GI. KATHERINE CARPENTER Jan 16, 2021 15:16
[2021-01-16] MEDS ORDERED: DICYCLOMINE HCL 10 MG CAPSULE PO PRN (15:30)
[2021-01-16] MEDS: PANTOPRAZOLE 40 MG TABLET.DR. PO SCH (16:43)
[2021-01-16 19:00] VITALS: BP 129/72
[2021-01-16] MEDS: COLESTIPOL HCL 1 GM TABLET PO SCH (21:33)
[2021-01-16] MEDS: clonazePAM 0.5 MG TABLET PO PRN (21:34)
[2021-01-16] MEDS: ZOLPIDEM 5 MG TABLET. PO PRN (21:34)
[2021-01-16 23:00] VITALS: BP 113/63
[2021-01-17] MEDS: KETOROLAC 30 MG/ML VIAL. IVP PRN (04:00)
[2021-01-17 07:00] VITALS: BP 102/62
[2021-01-17] MEDS: COLESTIPOL HCL 1 GM TABLET PO SCH (08:47)
[2021-01-17] MEDS: CHOLECALCIFEROL (VITAMIN D3) 1,000 UNIT TABLET PO SCH (08:47)
[2021-01-17] MEDS: PANTOPRAZOLE 40 MG TABLET.DR. PO SCH (08:47)
[2021-01-17] MEDS: HYDROmorphone 2 MG/ML VIAL IVP PRN (08:48)
[2021-01-17] MEDS: METOCLOPRAMIDE HCL 10 MG/2 ML VIAL. IVP PRN (08:52)
--- NOTE | 2021-01-17 10:23 | PDOC ---
Date of Service: DATE: 01/17/21 TIME: 10:19 Subjective: Subjective: Feels better w/ Colestid, was told she could go home today, slept well last night. Objective: Vital Signs: Vital Signs Date Time Temp Pulse Resp B/P (MAP) Pulse Ox O2 Delivery O2 Flow Rate FiO2 01/17/21 08:48 93 Room Air 01/17/21 07:00 98.3 71 18 102/62 (75) 98.3 PE: GEN: NAD LUNGS: CTAB HEART: RRR ABD: soft, bit less tender today NEURO/PSYCH: A & O 3 A/P: Chronic abd pain and diarrhea Question of colitis on CT S/p cholecystectomy, gastric sleeve, LAR w/ ileostomy/reversal, SBR, hernia repair Elevated TSH - per primary -- Diarrhea/pain improved w/ Colestid? Tolerating diet. She'd like to go home. DC per primary - needs Colestid Rx (and also I believe refill of Bentyl). Stool tests ordered for completeness sake yesterday - collected/pending - follow-up for results. Justicifation of Admission Dx: Justifications for Admission: Justification of Admission Dx: Yes KATHERINE CARPENTER Jan 17, 2021 10:23
[2021-01-17] MEDS ORDERED: OXYC-325 PO (10:38)
[2021-01-17] MEDS ORDERED: COLE1TAB PO (10:38)
[2021-01-17 11:00] VITALS: BP 109/66
--- NOTE | 2021-01-17 11:18 | NUR ---
SW following. Discussed with RN, discharge order for home with self care. RN advised no SW needs.
--- NOTE | 2021-01-17 12:11 | NUR ---
Discharge Note: JUAN SAUNDERS Discharge instructions and discharge home medications reviewed with Patient and a copy given. All questions have been answered and understanding verbalized. The following instructions and handouts were given: follow up instructions, medication education Discontinued lines and drains: 20 guage left AC, tip intact. patient tolerated well. Patient discharged to home with self care via .
== END 2021-01-17 23:00 | disposition home or self-care (01) | DRG 392 ==
LOC: ER 13:26 → ED HOLD 16:29 → 5 NORTH 18:31
PROVIDERS: ADMIT Internal Medicine; ATTEND Internal Medicine
DX: K52.9 Noninfective gastroenteritis and colitis, unspecified (principal); K43.9 Ventral hernia without obstruction or gangrene; E78.5 Hyperlipidemia, unspecified; F32.A Depression, unspecified; F41.9 Anxiety disorder, unspecified; G89.29 Other chronic pain; J30.9 Allergic rhinitis, unspecified; Z80.0 Family history of malignant neoplasm of digestive organs; Z85.42 Personal history of malignant neoplasm of other parts of uterus; Z85.43 Personal history of malignant neoplasm of ovary; Z87.19 Personal history of other diseases of the digestive system; Z87.891 Personal history of nicotine dependence; Z90.49 Acquired absence of other specified parts of digestive tract; Z90.710 Acquired absence of both cervix and uterus; Z98.84 Bariatric surgery status; Z20.822 Contact with and (suspected) exposure to COVID-19
CPT/HCPCS: 36415; 74177; 80053; 80307; 81001; 81025; 83605; 83690; 83735; 84145; 84443; 85025; 87040; 87045; 87205; 87426; 87493; 96361; 96374; 96375; J1170; J1885; J2270; J2405; J2765; J3010; J7030; Q9967; U0003; U0005; 99285-25; G0378

== ENCOUNTER → 2021-01-31 | Day surgery (SDC) | payer OTHER ==
[~2021-01-31] VITALS: Ht 165.1 cm; Wt 80.0 kg
[~2021-01-31] MED LIST changes: +CHOL400C PO; +COLE1TAB PO; +IV RINGERS,LACTATED 1000ML 1,000 ML IV SCH; +LEXAPRO10 MG PO; +LIDOCAINE 2% PF 5 ML VIAL. ONE; +OXYC-325 PO; +PROPOFOL 10 MG/ML (20ML) VIAL. IV ONE
[2021-01-31 13:52] VITALS: BP 158/87
[2021-01-31 14:55] VITALS: BP 108/72
== END | disposition home or self-care (01) ==
LOC: ENDOS 13:10
PROVIDERS: ATTEND Surgery
DX: K52.9 Noninfective gastroenteritis and colitis, unspecified (principal); K63.89 Other specified diseases of intestine; E66.9 Obesity, unspecified; F32.9 Major depressive disorder, single episode, unspecified; Z90.710 Acquired absence of both cervix and uterus; Z98.890 Other specified postprocedural states; Z79.899 Other long term (current) drug therapy; Z87.891 Personal history of nicotine dependence; Z88.1 Allergy status to other antibiotic agents
CPT/HCPCS: 45378; J2704